=== PATIENT | male | born 1995 | race Caucasian/White ===

== ENCOUNTER 2020-09-17 16:31 | Emergency (ER) | payer BC ==
[~2020-09-17] VITALS: Ht 180.3 cm; Wt 107.8 kg
[2020-09-17 16:49] VITALS: BP 134/86
--- NOTE | 2020-09-17 17:03 | NUR ---
MELISSA, [employer] IN [employer] [phone]
[2020-09-17] MEDS ORDERED: LORazepam 1 MG tablet PO ONE (17:05)
== END 2020-09-17 18:14 | disposition home or self-care (01) ==
LOC: ER 16:32
DX: F41.9 Anxiety disorder, unspecified (principal); F32.9 Major depressive disorder, single episode, unspecified; F84.0 Autistic disorder
CPT/HCPCS: 99283

== ENCOUNTER 2024-08-20 12:33 | Emergency (ER) | payer SELFPAY ==
[~2024-08-20] VITALS: Ht 180.3 cm; Wt 99.6 kg
[2024-08-20 13:31] LABS: BILIRUBIN,URINE NEGATIVE (Neg); CLARITY,URINE CLOUDY (Clear); COLOR,URINE YELLOW (Yellow); GLUCOSE, URINE NEGATIVE (Neg); KETONES,URINE NEGATIVE (Neg); LEUKOCYTE ESTERASE ,URINE NEGATIVE (Neg); NITRITES, URINE NEGATIVE (Neg); OCCULT BLOOD,URINE LARGE (Neg); PROTEIN,URINE TRACE mg/dl (Neg); UROBILINOGEN,URINE 0.2 E.U/dL (0.2-1.0)
[2024-08-20 13:36] LABS: UA COLLECTION TYPE CLN CATCH MIDSTREAM
[2024-08-20 13:37] LABS: RBC,URINE TNTC /HPF (0-2); SQUAMOUS EPITHELIAL CELL,UR NONE SEEN /LPF (FEW)
[2024-08-20 13:38] LABS: BACTERIA,URINE FEW /HPF (Neg); WBC,URINE 0-4 /HPF (0-4)
--- NOTE | 2024-08-20 14:21 | Physician Documentation ---
History of Present Illness ~ Chief Complaint: Testicular Pain Stated Complaint: STABBING FEELING IN GROIN/UTI Time Seen by MD: 13:33 OK to notify your PCP?: Yes Primary Medical Doctor: MARISOL Source: patient Mode of Arrival: POV Exam Limitations: no limitations HPI 29-year-old male with chief complaint concern about sexually transmitted infection due to having unprotected intercourse with more than one person recently. He does not know the sexual history of the people he had intercourse with. He reports that he has some soreness at the urethra as well as in his groin. He denies any lumps or lesions. He denies any penile discharge. He denies any changes in his urine color. No flank pain, fever, chills, nausea or vomiting. He states he has had epididymitis in the past and has been seen by Urology for this but states this is not anything that bad." Medication Reconciliation Allergies: Coded Allergies: No Known Allergies (Unverified , 08/20/24) Past Medical History Past Medical History: *PSYCH*, Anxiety, Depression Review of Systems All Other Systems at this time: Reviewed and Negative Physical Exam Vital Signs: Source: Temporal, Heart Rate: 79, Respiratory Rate: 18, BP: 117/83, Pulse Oximetry: 98, Weight: 99.600 Physical Exam GENERAL: Alert, no acute distress. SITTING COMFORTABLY ON THE GURNEY. HEENT: NCAT, EOMI, PERRL, normal oropharynx, moist oral mucosa. NECK: Supple, trachea midline. CARDIAC: Regular rate and rhythm, no murmurs, rubs, or gallops. RESPIRATORY: Equal breath sounds, clear to auscultation bilaterally, no respiratory distress. GASTROINTESTINAL: Non distended, soft, nontender, No guarding or rebound. MUSCULOSKELETAL: Normal gait. NEUROLOGICAL: Awake, alert, and oriented x 3. SKIN: Warm/dry, no pallor, no rash. PSYCH: Alert and appropriate. Affect congruent with mood. Speech is clear. Good eye contact. Progress Results/Orders Results/Orders Orders - JIMMY AZUL Ceftriaxone 500 Im W/Lidocaine (Rocephin (08/20/24 14:15) Azithromycin Tablet (Zithromax Tablet) (08/20/24 14:15) Vital Signs 08/20/24 12:51 Pulse 79 Resp 18 B/P (MAP) 117/83 Pulse Ox 98 Laboratory Tests Test 08/20/24 13:10 Urine Specimen Description Cln catch midstream Urine Color Yellow Urine Clarity Cloudy Urine pH 6.0 Urine Specific [place] 1.025 Urine Protein Trace Urine Glucose (UA) Negative Urine Ketones Negative Urine Occult Blood Large H Urine Nitrite Negative Urine Bilirubin Negative Urine Urobilinogen 0.2 Urine Leukocyte Esterase Negative Urine RBC Tntc Urine WBC 0-4 Urine Squamous Epithelial Cells None seen Urine Bacteria Few Urine Culture Indicated Not ind Volume Urine Centrifuged 10 ml Urine Comment Medical Decision Making Genital Diff Dx:Considerations: Include: Abscess, Balanitis, Balanoposthitis, Cellulitis, Epididymitis, Entrapment injury, Iron's gangrene, Foreign body, Facture penis, Hydrocele, Inguinal hernia, Post-op Complication, Paraphimosis, Prostatitis, Priapism, Syphilis, Testicular torsion, Torsion-epididymis, Torsion-appendiceal, Urinary retention, Urethritis, Urethritis-chlamydial, Urethritis-gonococcal, UTI, Other Additional Comment I AM NOT CONCERNED ABOUT A KIDNEY STONE WITH THE LARGE AMOUNT OF MICROSCOPIC HEMATURIA NOTED IN THE URINALYSIS PATIENT'S SYMPTOMS ARE NOT AT ALL CONSISTENT WITH A KIDNEY STONE. PATIENT DID REPORT THAT HE WAS MASTURBATING A FEW DAYS AGO AND WHEN HE MASTURBATES HE STATES HE SQUEEZES HIS PENIS VERY TIGHTLY SO THAT NO EJACULATION CAN NOT ESCAPE AND I AM WONDERING IF HE POSSIBLY CAUSE SOME TRAUMA WHEN HE WAS DOING THIS. HE DENIED ANY FOREIGN BODIES OR ANY INSTRUMENTATION WITH HIS PENIS OR URETHRA. Departure Time of Disposition: 14:18 Disposition: 01 HOME / SELF CARE / HOMELESS Impression: Primary Impression: Unprotected sexual intercourse Additional Impression: Dysuria Condition: Stable Discharge Instructions: Preventing Sexually Transmitted Infections, Adult Additional Instructions: F/U WITH PCP ABOUT FURTHER STI TESTING AND IF SYMPTOMS PERSIST AFTER TREATMENT IF SYMPTOMS WORSEN, RETURN TO ER Referrals: NO PRIMARY CARE PROVIDER (PCP) Education Educated: Patient Educated regarding: diagnosis, treatment, need for follow up Signature Scribe Signature: X Attestation: JIMMY DOYLE Aug 20, 2024 14:21
[2024-08-20] MEDS: azithromycin 250mg tablet PO ONE (14:28)
[2024-08-20] MEDS: CefTRIAXone 500MG IM Kit w/LIDOcaine IM ONE (14:30)
[2024-08-20 14:39] VITALS: BP 123/69; PULSE 78; RESP 16; TEMP 98.5; O2SAT 99
== END 2024-08-20 14:40 | disposition home or self-care (01) ==
LOC: ER 12:34
DX: R30.0 Dysuria (principal); F41.9 Anxiety disorder, unspecified; F32.A Depression, unspecified
CPT/HCPCS: 36415; 81001; 87491; 87591; 96372; 99283; J0696

== ENCOUNTER 2024-09-21 10:52 | Emergency (ER) | payer SELFPAY ==
[~2024-09-21] VITALS: Ht 180.3 cm; Wt 101.2 kg
[2024-09-21 11:04] VITALS: BP 125/82; PULSE 83; RESP 16; O2SAT 98
[2024-09-21 11:21] LABS: LEUKOCYTE ESTERASE ,URINE NEGATIVE (Neg); NITRITES, URINE NEGATIVE (Neg); OCCULT BLOOD,URINE LARGE (Neg)
[2024-09-21 11:24] LABS: UA COLLECTION TYPE CLN CATCH MIDSTREAM
[2024-09-21 11:34] LABS: SQUAMOUS EPITHELIAL CELL,UR FEW /LPF (FEW)
--- NOTE | 2024-09-21 12:29 | RADIOLOGY REPORT ---
CLINICAL INFORMATION: 29 years old, Male; hematuria. TECHNIQUE: Axial CT images of the abdomen and pelvis were obtained without IV contrast. Coronal and s agittal reformatted images were obtained, reviewed, and stored. Evaluation of the parenchymal organs is limited without IV contrast. Evaluation of the bowel and mesentery is limited without oral contras t. All CT scans at this medical facility are performed using dose modulation techniques as appropriat e to a performed exam including the following: Automated exposure control was utilized; adjustment of the MA and/or KV according to patient size; and use of iterative reconstruction technique. CTDIvol = 28.01 mGy DLP = 1377.19 mGy-cm COMPARISON: None FINDINGS: Lung bases: Lung bases are clear. Liver: Grossly unremarkable in its noncontrast enhanced appearance. No abnormal density or focal lesi on identified. Biliary: Questionable increased density in the gallbladder, may be due to sludge or possibly artifact . Spleen: Unremarkable. Pancreas: Grossly unremarkable in its noncontrast enhanced appearance. Adrenal glands: Unremarkable. No mass. Kidneys: Mild right hydronephrosis. Multiple bilateral renal calculi, including a 9 mm calculus in th e right renal pelvis. There is a 3.5 mm calculus in the distal right ureter just proximal to the uret erovesical junction. Aorta/Vascular: No aneurysm or significant calcification. Retroperitoneum: No mass or lymphadenopathy. Bowel/mesentery: No small bowel obstruction. No free air or free fluid. Appendix is visualized and ap pears unremarkable. Pelvic organs: Grossly unremarkable. Bladder: Unremarkable. No mass. Abdominal wall: Small fat containing umbilical hernia. Small fat containing indirect left inguinal he rnia. Bones: No acute fracture or suspicious intraosseous lesion. Postsurgical changes with 2 cancellous ca nnulated screws extending across the right femoral neck into the femoral head and a single cancellous cannulated screw extending across the left femoral neck into the femoral head. IMPRESSION: 1. Multiple bilateral renal calculi. Obstructing calculus in the distal right ureter just proximal to the ureterovesical junction measuring up to 3.5 mm. There is also a 9 mm calculus in the right renal pelvis. 2. Questionable increased density in the gallbladder, may be due to sludge or possibly artifact. Donny elate with clinical findings. If clinically indicated, ultrasound could be obtained. 3. Small fat containing umbilical hernia and small fat containing indirect left inguinal hernia. 4. Additional findings as described above.
--- NOTE | 2024-09-21 12:45 | Physician Documentation ---
History of Present Illness ~ Chief Complaint: Blood in Urine Stated Complaint: BLOOD IN URINE Time Seen by MD: 11:36 Primary Medical Doctor: MARISOL IRELAND This 29-year-old male who has had recurrent flank pain presents today with a an episode of hematuria. He denies any current flank pain nausea vomiting or abdominal pain states he has never been evaluated for kidney stones.. He also denies any STI symptoms or burning urination Is otherwise healthy. Day of Onset: Sep 21, 2024 Medication Reconciliation Allergies: Coded Allergies: No Known Allergies (Unverified , 08/20/24) Scheduled Ibuprofen* (Motrin*), 1 TAB PO Q8H Tamsulosin Hcl* (Flomax*), 1 CAP PO DAILY Past Medical History Past Medical History: *PSYCH*, Anxiety, Depression Review of Systems All Other Systems at this time: Reviewed and Negative ROS As stated above in the HPI, otherwise all systems are reviewed and negative. Physical Exam Vital Signs: Temperature: 98.2, Source: Temporal, Heart Rate: 83, Respiratory Rate: 16, BP: 125/82, Pulse Oximetry: 98, Weight: 101.250 Physical Exam General: Alert, no apparent distress. Chest: No accessory muscle use. Cardiovascular: Regular rate and rhythm, no murmurs. Gastrointestinal: Soft, nontender, nondistended. Bowels sounds present. Positive CVA tenderness Neurologic: Oriented x4. Psychiatric: Normal mood and affect. Skin: Normal color, warm and dry. No edema, no ecchymosis. Progress Results/Orders Results/Orders Orders - SUNNI ZEPEDA EYELET MAKER Ct Abdomen Pelvis (09/21/24 11:56) Completed Orders - SUNNI ZEPEDA EYELET MAKER Ct Abdomen Pelvis (09/21/24 11:56) Vital Signs 09/21/24 11:04 Temp 98.2 Pulse 83 Resp 16 B/P (MAP) 125/82 Pulse Ox 98 Laboratory Tests Test 09/21/24 11:08 Urine Specimen Description Cln catch midstream Urine Color Yellow Urine Clarity Cloudy Urine pH 6.0 Urine Specific [place] 1.025 Urine Protein Trace Urine Glucose (UA) Negative Urine Ketones Negative Urine Occult Blood Large H Urine Nitrite Negative Urine Bilirubin Negative Urine Urobilinogen 0.2 Urine Leukocyte Esterase Negative Urine RBC Tntc Urine WBC 0-4 Urine Squamous Epithelial Cells Few Urine Bacteria 3+ Urine Culture Indicated Not ind Volume Urine Centrifuged 10 ml Urine Comment Medical Decision Making Findings This patient differentials include renal calculus infarction obstruction and malignancy. Patient's laboratory values were mostly unremarkable other than hematuria which I expected. CT indicated he does have a single 3.5 mm obstructing calculus in the UVJ. In in the affected side he also has a nonobstructing 9 mm stone in the renal pelvis. Speed said patient has continued to remain asymptomatic throughout his stay in the ED. I am going to prescribe him Flomax to help with the passing of renal calculus. I am also going to give him contact info to obtain a referral to see Urology. Further evaluation. Urinary Diff Dx:Considerations: Include: AAA, Aortic dissection, Appendicitis, Appendicitis train, Bowel obstruction, Bladder outlet obstruc., Cholelithiasis, Choleangitis, Cholecystitis, DJD, Epididymitis, Hepatitis, HNP, Impaction, Musculoskeletal pain, Pancreatitis, Postoperative Comp., Prostatitis, Pyelonephritis, Renal failure, Renal infarction, Strain, Urolithiasis, Urinary Obstruction, Urethritis, Urinary retention, UTI, Other Genital Diff Dx:Considerations: Include: Abscess, Balanitis, Balanoposthitis, C ellulitis, Epididymitis, Entrapment injury, Iron's gangrene, Foreign body, Facture penis, Hydrocele, Inguinal hernia, Post-op Complication, Paraphimosis, Prostatitis, Priapism, Syphilis, Testicular torsion, Torsion-epididymis, Torsion-appendiceal, Urinary retention, Urethritis, Urethritis-chlamydial, Urethritis-gonococcal, UTI, Other Departure Disposition: 01 HOME / SELF CARE / HOMELESS Impression: Primary Impression: Renal calculi Discharge Instructions: Hematuria, Adult, Kidney Stones Referrals: NO PRIMARY CARE PROVIDER (PCP) MARÍA GOLDBERG MD Prescriptions Tamsulosin Hcl* (Flomax*) 0.4 Mg Cap.sr.24h 1 CAP PO DAILY for 30 Days, #30 CAP Prov: SUNNI ZEPEDA NP 09/21/24 Ibuprofen* (Motrin*) 400 Mg Tablet 1 TAB PO Q8H for pain or fever for 20 Days, #60 TAB Prov: SUNNI ZEPEDA EYELET MAKER 09/21/24 Signature Scribe Signature: Attestation: Scribed for Sunni Zepeda [employer] Agent by Sunni Deleon NP . 09/21/24 12:57 SUNNI ZEPEDA NP Sep 21, 2024 12:45
[2024-09-21] MEDS ORDERED: IBUP-1984 PO (12:59)
[2024-09-21] MEDS ORDERED: TAMS-55 PO (12:59)
[2024-09-21 13:07] VITALS: TEMP 98.2
== END 2024-09-21 13:10 | disposition home or self-care (01) ==
LOC: ER 10:52
DX: N20.0 Calculus of kidney (principal); F41.9 Anxiety disorder, unspecified; F32.A Depression, unspecified; Z79.899 Other long term (current) drug therapy
CPT/HCPCS: 74176; 81001; 99284